=== PATIENT | female | born 1995 | race African-American/Black ===

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

== ENCOUNTER 2017-05-30 11:48 | Emergency (ER) | payer OTHER ==
[~2017-05-30] VITALS: Ht 162.6 cm; Wt 64.4 kg
[~2017-05-30 11:48] MED LIST changes: +FLEXERIL10 MG PO; +ULTRAM50 MG PO
[2017-05-30 12:53] LABS: HEMATOCRIT 38.9 % (36.0-46.0); HEMOGLOBIN 13.7 G/DL (11.9-15.5); MCH 29.7 PG (29.0-34.0); MCHC 35.2 G/DL (30.0-36.0); MCV 84.2 FL (83-99); PLATELET COUNT 216 K/uL (156-360); RBC DIS.WIDTH-CV 11.8 % (11.8-14.6); RBC DIS.WIDTH-SD 35.8 % (39-53); RED BLOOD COUNT 4.62 M/uL (3.80-5.20); WHITE BLOOD COUNT 9.1 K/uL (4.1-10.2)
[2017-05-30 13:04] LABS: ALBUMIN 4.6 g/dL (3.2-4.8); CHLORIDE 102 mEq/L (99-109); POTASSIUM 3.6 mEq/L (3.7-5.4); SODIUM 137 mEq/L (136-147)
[2017-05-30 13:06] LABS: GLUCOSE 81 mg/dL (70-99); TOTAL PROTEIN 7.6 g/dL (6.4-8.3)
[2017-05-30 13:08] LABS: TOTAL BILIRUBIN 0.7 mg/dL (0.0-1.0)
[2017-05-30 13:10] LABS: ALKALINE PHOSPHATASE 60 IU/L (3-129); CREATININE 0.7 mg/dL (0.6-1.3); GFR ESTIMATE (CALCULATED) > 59 mL/min/
[2017-05-30 13:11] LABS: UREA NITROGEN (BUN) 9 mg/dL (9-23)
[2017-05-30 13:12] LABS: AST (GOT) 22 IU/L (2-34)
[2017-05-30 13:13] LABS: ALT (GPT) 16 IU/L (3-49)
[2017-05-30 13:40] LABS: QUANTITATIVE HCG 76791.5 MIU/ML
[2017-05-30 15:13] LABS: APPEARANCE CLOUDY ((CLEAR)); BILIRUBIN NEGATIVE; BLOOD NEGATIVE; COLOR AMBER ((YELLOW)); GLUCOSE (STRIP) NEGATIVE; KETONES 20; LEUKOCYTES NEGATIVE; NITRITE NEGATIVE; PROTEIN (STRIP) 100; SPECIFIC GRAVITY 1.029 (1.000-1.030)
[2017-05-30 15:45] LABS: BACTERIA 1+ /HPF; CALCIUM OXALATE CRYSTALS 2+ /HPF; EPITHELIAL CELLS 4+ /HPF; MUCUS 1+ /LPF; RED BLOOD CELLS 0-5 /HPF (0-5); UCUL ADDED? NO; WHITE BLOOD CELLS 0-5 /HPF (0-5)
[2017-05-30] MEDS ORDERED: PHENERGAN25 MG PR (15:57)
[2017-05-30 16:09] VITALS: BP 122/67
== END 2017-05-30 16:10 | disposition home or self-care (01) ==
LOC: EME 11:48
DX: O21.9 Vomiting of pregnancy, unspecified (principal); O99.281 Endocrine, nutritional and metabolic diseases complicating pregnancy, first trimester; E86.0 Dehydration; O99.341 Other mental disorders complicating pregnancy, first trimester; F31.9 Bipolar disorder, unspecified; Z3A.01 Less than 8 weeks gestation of pregnancy; Z87.42 Personal history of other diseases of the female genital tract; Z96.22 Myringotomy tube(s) status; Z98.890 Other specified postprocedural states
CPT/HCPCS: 80053; 81003; 84702; 85027; 99281; 99284; J2405; J7030